=== PATIENT | female | born 1935 | race Caucasian/White ===

== ENCOUNTER → 2020-12-18 | Day surgery (SDC) | payer OTHER ==
[2020-12-17 09:59] LABS: HCT 41.6 % (37.0-47.0); HGB 13.7 g/dl (12.5-16.0); MCH 32.2 pg (25.0-31.0); MCHC 32.9 g/dL (32.0-36.0); MCV 97.9 fL (78.0-100.0); MPV 8.7 fL (6.0-9.5); RBC 4.25 M/uL (4.20-5.40); RDW 12.5 % (11.5-14.0); WBC 8.8 K/uL (4.0-10.5)
[2020-12-17 10:24] LABS: ALBUMIN 3.6 g/dL (3.4-5.0); BILIRUBIN - TOTAL 0.5 mg/dL (0.2-1.0); BUN/CREAT RATIO (CALC) 18.8 RATIO; CREATININE 0.64 mg/dL (0.51-0.95); GLOBULIN (CALCULATION) 3.7 g/dL; POTASSIUM 4.3 mmol/L (3.5-5.1); TOTAL PROTEIN 7.3 g/dL (6.4-8.2)
[~2020-12-18] MED LIST: ACETAMINOPHEN500 M1 PO; ASPIRIN EC81 MG PO; ASPIRIN81 MG PO; ATORVASTATIN CA40 MG PO; CEFDINIR300 MG PO; DONEPEZIL HCL10 MG PO; MEMANTINE HCL5 MG PO; NORCO 5-325 TA1 EACH PO; OXYBUTYNIN CHLOR5 M1 PO; PAXIL20 MG PO; ULTRAM50 MG PO; ZOCOR20 MG PO
== END | disposition home or self-care (01) ==
LOC: FAS 09:52
PROVIDERS: Obstetrics & Gynecology
DX: C54.1 Malignant neoplasm of endometrium (principal); T83.711A Erosion of implanted vaginal mesh to surrounding organ or tissue, initial encounter; A63.0 Anogenital (venereal) warts; N81.89 Other female genital prolapse; G30.9 Alzheimer's disease, unspecified; F02.80 Dementia in other diseases classified elsewhere, unspecified severity, without behavioral disturbance, psychotic disturbance, mood disturbance, and anxiety; F41.9 Anxiety disorder, unspecified; F32.9 Major depressive disorder, single episode, unspecified; E78.5 Hyperlipidemia, unspecified; Z98.890 Other specified postprocedural states; Z87.891 Personal history of nicotine dependence; Z86.73 Personal history of transient ischemic attack (TIA), and cerebral infarction without residual deficits; Z88.2 Allergy status to sulfonamides; Z88.5 Allergy status to narcotic agent; Z88.8 Allergy status to other drugs, medicaments and biological substances; Z79.02 Long term (current) use of antithrombotics/antiplatelets; Z79.899 Other long term (current) drug therapy
CPT/HCPCS: 36415; 80053; 86850; 86900; 86901; 88305; J1170; J2704; J3010; J7120

== ENCOUNTER 2022-01-10 11:11 | Emergency (ER) | payer OTHER ==
[2022-01-10 12:46] LABS: BASOPHIL 0.8 % (0-2); EOSINOPHIL 1.5 % (0-7); HGB 13.6 g/dl (12.5-16.0); LYMPHOCYTE 25.5 % (15-48); MCH 32.5 pg (25.0-31.0); MCHC 32.4 g/dL (32.0-36.0); MCV 100.2 fL (78.0-100.0); MONOCYTE 9.8 % (0-12); MPV 9.2 fL (6.0-9.5); NRBC 0; PLT 264 K/uL (150-400); RBC 4.19 M/uL (4.20-5.40); RDW 12.7 % (11.5-14.0); WBC 8.5 K/uL (4.0-10.5)
[2022-01-10 12:50] LABS: INR 1.08 (0.9-1.2); PROTHROMBIN TIME 13.4 SECONDS (11.8-13.4); PTT 25.5 SECONDS (24.4-34.7)
[2022-01-10 12:57] LABS: ALBUMIN 3.4 g/dL (3.4-5.0); BILIRUBIN - TOTAL 0.3 mg/dL (0.2-1.0); BUN/CREAT RATIO (CALC) 22.1 RATIO; CREATININE 0.77 mg/dL (0.51-0.95); GLOBULIN (CALCULATION) 3.7 g/dL; POTASSIUM 4.2 mmol/L (3.5-5.1); TOTAL PROTEIN 7.1 g/dL (6.4-8.2)
== END 2022-01-10 15:48 | disposition home or self-care (01) ==
LOC: FER 11:11
PROVIDERS: Emergency Medicine
DX: Z71.1 Person with feared health complaint in whom no diagnosis is made (principal); F03.90 Unspecified dementia, unspecified severity, without behavioral disturbance, psychotic disturbance, mood disturbance, and anxiety; Z88.2 Allergy status to sulfonamides; Z28.310 Unvaccinated for COVID-19
CPT/HCPCS: 36415; 80053; 85025; 85610; 85730; Q9967

== ENCOUNTER 2022-03-13 14:30 | Emergency (ER) | payer OTHER ==
[2022-03-13 14:55] LABS: BASOPHIL 0.8 % (0-2); EOSINOPHIL 2.7 % (0-7); HCT 41.7 % (37.0-47.0); HGB 13.5 g/dl (12.5-16.0); LYMPHOCYTE 31.5 % (15-48); MCH 32.1 pg (25.0-31.0); MCHC 32.4 g/dL (32.0-36.0); MCV 99.3 fL (78.0-100.0); MPV 9.1 fL (6.0-9.5); NEUTROPHIL 54.7 % (41-80); NRBC 0; PLT 270 K/uL (150-400); RDW 12.8 % (11.5-14.0); WBC 9.2 K/uL (4.0-10.5)
[2022-03-13 15:10] LABS: INR 1.07 (0.9-1.2); PROTHROMBIN TIME 13.3 SECONDS (11.8-13.4); PTT 24.5 SECONDS (24.4-34.7)
[2022-03-13 15:17] LABS: IRON % SATURATION 21.5 %SAT (20-50)
[2022-03-13 15:21] LABS: BILIRUBIN NEGATIVE (NEGATIVE); BLOOD NEGATIVE Ery/uL (NEGATIVE); CLARITY CLEAR (CLEAR); COLOR YELLOW (YELLOW); GLUCOSE (U) NORMAL (NORMAL); LEUKOCYTES NEGATIVE Leu/uL (NEGATIVE); NITRITE NEGATIVE (NEGATIVE); PROTEIN NEGATIVE (NEGATIVE); UROBILINOGEN 0.2 mg/dL (0.2-1.0)
[2022-03-13 15:28] LABS: ALBUMIN 3.7 g/dL (3.4-5.0); BILIRUBIN - TOTAL 0.3 mg/dL (0.2-1.0); BUN/CREAT RATIO (CALC) 22.7 RATIO; CREATININE 0.88 mg/dL (0.51-0.95); GLOBULIN (CALCULATION) 3.5 g/dL; POTASSIUM 4.1 mmol/L (3.5-5.1); TOTAL PROTEIN 7.2 g/dL (6.4-8.2)
[2022-03-13 15:39] LABS: LACTIC ACID 1.2 mmol/L (0.4-1.9)
[2022-03-13] MEDS ORDERED: NORCO 5-325 TA1 EACH PO (18:50)
== END 2022-03-14 07:45 | disposition home or self-care (01) ==
LOC: FER 14:30
PROVIDERS: Emergency Medicine
DX: R53.1 Weakness (principal); B02.9 Zoster without complications; R10.32 Left lower quadrant pain; Z28.310 Unvaccinated for COVID-19; Z88.2 Allergy status to sulfonamides
CPT/HCPCS: 36415; 80053; 81003; 82728; 83540; 83550; 83605; 83735; 83880; 84145; 84439; 84443; 84484; 85025; 85610; 85730; 93005; J1170; J1885; J2405; J7030; Q9967